=== PATIENT | female | born 1950 | race Caucasian/White ===

== ENCOUNTER 2018-08-13 20:53 | Inpatient (IN) | payer MEDICARE, OTHER ==
[2018-08-13] MEDS ORDERED: HYDROmorphone 1 MG/ML Syringe IVPUSH ONE ×2 (21:28→22:23)
--- NOTE | 2018-08-13 22:22 | CRLCR ---
INDICATION: Trauma. Patient fall now with right hip pain TECHNIQUE: Pelvis radiograph, Hip radiograph 2 views right COMPARISON: None FINDINGS: Bone: There is a comminuted, impacted fracture of the right femoral neck with varus angulation. Joint: The hip joint is unremarkable. The visualized sacroiliac joints are unremarkable in appearance. The pubic symphysis is normal in appearance. Soft tissue: Unremarkable. The visualized bowel gas pattern of the pelvis is unremarkable in appearance. No radiopaque foreign bodies are seen. IMPRESSION: 1. There is a comminuted, impacted fracture of the right femoral neck with varus angulation. Dictated by Edis Donahue MD @ 08/13/2018 10:20:17 PM Dictated by: Edis Donahue MD @ 08/13/2018 22:20:19 (Electronically Signed)
--- NOTE | 2018-08-13 23:11 | EDM.PDOC ---
ED HPI GENERAL MEDICAL PROBLEM - General Chief Complaint: Lower Extremity Injury/Pain Stated Complaint: FALL, VIA AMBULANCE Time Seen by Provider: 08/13/18 21:23 Source of Information: Reports: Patient History Limitations: Reports: No Limitations - History of Present Illness INITIAL COMMENTS - FREE TEXT/NARRATIVE: This lady arrived by EMS after she suffered a right hip injury when she fell off a stool. This happened just prior to arrival. She denies taking any type of anticoagulation and does not take aspirin. 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 right foot fracture Psychiatric History: Reports: Anxiety, Depression - Infectious Disease History Infectious Disease History: Reports: Chicken Pox, Measles, Mumps, Shingles - Past Surgical History HEENT Surgical History: Reports: Oral Surgery Female Surgical History: Reports: Section Musculoskeletal Surgical History: Reports: Other (See Below) Other Musculoskeletal Surgeries/Procedures:: right wrist repair Social & Family History - Tobacco Use Smoking Status *Q: Never Smoker - Caffeine Use Caffeine Use: Reports: Coffee - Recreational Drug Use Recreational Drug Use: No Review of Systems - Review of Systems Review Of Systems: ROS reveals no pertinent complaints other than HPI. ED EXAM, GENERAL - Physical Exam Exam: See Below Exam Limited By: No Limitations General Appearance: Alert, WD/WN, Moderate Distress Eye Exam: Bilateral Eye: Normal Inspection Throat/Mouth: Normal Inspection Respiratory/Chest: Lungs Clear Cardiovascular: Regular Rate, Rhythm GI/Abdominal: Non-Tender Extremities: Other (Tenderness to the right hip with limited range of motion of the right leg) Neurological: Alert, Oriented, No Motor/Sensory Deficits Psychiatric: Normal Affect Skin Exam: Warm, Dry Course - Vital Signs Last Recorded V/S: Last Vital Signs Temp 36.2 C 08/13/18 21:09 Pulse 63 08/13/18 21:09 Resp 16 08/13/18 21:09 BP 142/60 H 08/13/18 21:09 Pulse Ox 94 L 08/13/18 21:09 - Orders/Labs/Meds Meds: Medications Discontinued Medications Generic Name Dose Route Start Last Admin Trade Name Cherise PRN Reason Stop Dose Admin Hydromorphone HCl 1 mg 08/13/18 21:28 08/13/18 21:38 Dilaudid IVPUSH 08/13/18 21:29 1 mg ONETIME ONE Administration Hydromorphone HCl 1 mg 08/13/18 22:23 08/13/18 22:38 Dilaudid IVPUSH 08/13/18 22:24 1 mg ONETIME ONE Administration - Radiology Interpretation Free Text/Narrative:: X-ray shows a comminuted impacted fracture of the right femoral neck with varus angulation - Re-Assessments/Exams Free Text/Narrative Re-Assessment/Exam: 08/13/18 23:10 I spoke with Deepak Randolph at [facility] and he accepted the patient. The patient was managed in our ER with 2 doses of Dilaudid 1 mg IV which gave fairly good pain control. She also received 4 mg Zofran IV Departure - Departure Time of Disposition: 23:10 Disposition: DC/Tfer to Acute Hospital 02 Condition: Fair Clinical Impression: Fracture of neck of femur, hip - Discharge Information Referrals: PCP,None [Primary Care Provider] -
[2018-08-14] MEDS ORDERED: HYDROmorphone 1 MG/ML Syringe IVPUSH ONE (01:02)
--- NOTE | 2018-08-14 01:21 | PCM.HP ---
H&P History of Present Illness - General Date of Service: 08/14/18 Admit Problem/Dx: Admission Diagnosis/Problem Admission Diagnosis/Problem Hip fracture requiring operative repair Source of Information: Patient, Family, Provider, RN Notes Reviewed History Limitations: Reports: No Limitations - History of Present Illness Initial Comments - Free Text/Narative: Ms. Wilson is a 67-year-old woman who was admitted through the emergency department with right hip pain, secondary to a right hip fracture. Last night she was standing on a step stool and in the process of getting down and fell. She immediately noted pain in her right hip. She was brought into the emergency department and x-ray shows evidence of a right femoral neck fracture. Has had a previous fracture of her wrist several years ago. She is otherwise in very good health, other than depression which is well managed. She denies any history of significant cardiac or pulmonary disease. She is had previous surgery with general anesthetic and denies any adverse reaction. There is no family history of adverse reaction to general anesthetic. She denies any history of deep vein thrombosis, pulmonary embolism, or bleeding abnormalities. 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 right foot fracture Psychiatric History: Reports: Anxiety, Depression - Infectious Disease History Infectious Disease History: Reports: Chicken Pox, Measles, Mumps, Shingles - Past Surgical History HEENT Surgical History: Reports: Oral Surgery Female Surgical History: Reports: Section Musculoskeletal Surgical History: Reports: Other (See Below) Other Musculoskeletal Surgeries/Procedures:: right wrist repair Social & Family History - Tobacco Use Smoking Status *Q: Never Smoker - Caffeine Use Caffeine Use: Reports: Coffee - Recreational Drug Use Recreational Drug Use: No H&P Review of Systems - Review of Systems: Review Of Systems: See Below General: Denies: Fever, Chills, Weakness HEENT: Reports: No Symptoms Pulmonary: Reports: No Symptoms Cardiovascular: Reports: No Symptoms Gastrointestinal: Reports: No Symptoms Genitourinary: Reports: No Symptoms Musculoskeletal: Reports: Joint Pain (Severe right hip pain) Skin: Reports: No Symptoms Psychiatric: Reports: No Symptoms Neurological: Reports: No Symptoms Hematologic/Lymphatic: Reports: No Symptoms Immunologic: Reports: No Symptoms Exam - Exam Exam: See Below - Vital Signs Vital Signs: Last Vital Signs Temp 97.8 F 08/13/18 23:48 Pulse 67 08/13/18 23:48 Resp 16 08/13/18 23:48 BP 130/62 08/13/18 23:48 Pulse Ox 95 08/13/18 23:48 Weight: 170 lb - Exam Quality Assessment: DVT Prophylaxis General: Alert, Oriented, Cooperative, Moderate Distress HEENT: Conjunctiva Clear, Hearing Intact, Mucosa Moist & [place], Normal Nasal Septum, Posterior Pharynx Clear, Pupils Equal Neck: Supple, Trachea Midline Lungs: Clear to Auscultation, Normal Respiratory Effort Cardiovascular: Regular Rate, Regular Rhythm, Normal S1, Normal S2. No: Systolic Murmur, Diastolic Murmur GI/Abdominal Exam: Soft, Non-Tender, No Organomegaly, No Distention Extremities: No Pedal Edema, Leg Pain (Right hip pain) Skin: Warm, Dry, Intact Neurological: Cranial Nerves Intact, Strength Equal Bilateral, Normal Speech, Normal Tone, Sensation Intact. No: Focal Deficit Neuro Extensive - Mental Status: Alert, Oriented x3, Normal Mood/Affect, Normal Cognition, Memory Intact *Q Meaningful Use (ADM) - VTE Risk Assess *Q Each Risk Factor Represents 1 Point: None Total Score 1 Point Risk Factors: 0 Each Risk Factor Represents 2 Points: Age 60 - 74 Years Total Score 2 Point Risk Factors: 2 Each Risk Factor Represents 3 Points: None Total Score 3 Point Risk Factors: 0 Each Risk Factor Represents 5 Points: Hip, Pelvis or Leg Fracture, Less than 1 month Total Score 5 Point Risk Factors: 5 Venous Thromboembolism Risk Factor Score *Q: 7 Problem List Initiated/Reviewed/Updated: Yes Orders Last 24hrs: Active Orders 24 hr Category Date Time Status Patient Status Manage Transfer [TRANSFER] Routine ADT 08/14/18 01:02 Ordered Resuscitation Status Routine Resus Stat 08/14/18 01:04 Ordered Assessment/Plan Comment:: ASSESSMENT AND PLAN RIGHT FEMORAL NECK FRACTURE-secondary to a fall earlier last night. She is of good health and is low risk for anesthesia. -Consult Dr. Proctor Wednesday morning -Nothing by mouth after midnight Wednesday night -IV fluids for hydration -IV Dilaudid for pain as needed [id number] on current therapy -Continue Effexor during hospitalization MAINTENANCE ISSUES -DVT prophylaxis; heparin 5000 units subcutaneous every 8 hours until tomorrow night, then discontinue ending surgery -GI prophylaxis; not indicated -Saavedra catheter; not indicated -Nutrition; regular diet, nothing by mouth after midnight Wednesday -Nicotine dependence; not required CODE STATUS-FULL CODE ADMISSION STATUS-patient will be admitted to inpatient status, expect at least a 2 night hospital stay for evaluation and management of problems as outlined above. At the time of this admission I do not reasonably expected evaluation and management of this problem will require more than a 96 hour hospital stay. DISPOSITION-anticipate discharge to home after the hospital stay. PRIMARY CARE PROVIDER-she is from [facility] and receives her primary care there.
[2018-08-14] MEDS ORDERED: Albuterol 0.083% 2.5 MG/3 ML Neb Soln NEB PRN (01:28)
[2018-08-14] MEDS ORDERED: Acetaminophen 325 MG Tab PO PRN (01:28)
[2018-08-14] MEDS ORDERED: Lactated Ringers 1,000 ML IV SCH (01:28)
[2018-08-14] MEDS ORDERED: Melatonin 3 MG Tab PO PRN (01:28)
[2018-08-14] MEDS ORDERED: Ondansetron 4 MG/2 ML SDV IV PRN (01:28)
[2018-08-14] MEDS ORDERED: Sodium Chloride 0.9% 10 ML Syringe FLUSH PRN (01:28)
[2018-08-14] MEDS: Heparin Sodium 5,000 Units/ML Vial SUBCUT SCH ×3 (02:10→18:20)
[2018-08-14] MEDS: HYDROmorphone 1 MG/ML Syringe IVPUSH PRN ×4 (07:17→21:46)
[2018-08-14] MEDS: Venlafaxine 75 MG Cap.ER PO SCH (10:06)
--- NOTE | 2018-08-14 12:25 | PCM.CONS ---
H&P History of Present Illness - General Date of Service: 08/14/18 Admit Problem/Dx: Admission Diagnosis/Problem Admission Diagnosis/Problem Hip fracture requiring operative repair Source of Information: Patient History Limitations: Reports: No Limitations - History of Present Illness Initial Comments - Free Text/Narative: 67 year old white female with history of a fall from a step stool yesterday resulting in a displaced right femoral neck fracture. Admitted thru the ED. No other injuries. Otherwise healthy and active. No blood thinners or other contra-indications to surgery. Onset of Symptoms: Reports: Sudden Duration of Symptoms: Reports: Constant Location: Reports: Lower Extremity, Right Quality: Reports: Sharp, Stabbing Severity: Severe Improves with: Reports: Immobilization Worsens with: Reports: Movement Associated Symptoms: Reports: No Other Symptoms right upper leg/groin Pain Score (Numeric/FACES): 4 - Related Data Allergies/Adverse Reactions: Allergies Allergy/AdvReac Type Severity Reaction Status Date / Time No Known Allergies Allergy Verified 08/14/18 02:15 Home Medications: Home Meds Calcium Carbonate [Calcium] 600 mg PO DAILY 09/02/15 [History] Multivitamin [Multivitamins] 1 tab PO DAILY 09/02/15 [History] Venlafaxine [Effexor XR] 300 mg PO DAILY 09/02/15 [History] Cholecalciferol (Vitamin D3) [Vitamin D] 5,000 unit PO DAILY 08/14/18 [History] Past Medical History HEENT History: Reports: None Genitourinary History: Reports: 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 right foot fracture. right hip fracture Psychiatric History: Reports: Anxiety, Depression - Infectious Disease History Infectious Disease History: Reports: Chicken Pox, Measles, Mumps, Shingles - Past Surgical History HEENT Surgical History: Reports: Oral Surgery Female Surgical History: Reports: Section Musculoskeletal Surgical History: Reports: Other (See Below) Other Musculoskeletal Surgeries/Procedures:: right wrist repair Social & Family History - Tobacco Use Smoking Status *Q: Former Smoker Used Tobacco, but Quit: Yes Month/Year Tobacco Last Used: 03/1970 - Caffeine Use Caffeine Use: Reports: Coffee Caffeine Use Comment: 1-2 cups/daily - Alcohol Use Days Per Week of Alcohol Use: 7 Number of Drinks Per Day: 1 Total Drinks Per Week: 7 - Recreational Drug Use Recreational Drug Use: No H&P Review of Systems - Review of Systems: Review Of Systems: ROS reveals no pertinent complaints other than HPI. Exam - Exam Exam: See Below - Vital Signs Vital Signs: Last Vital Signs Temp 36.6 C 08/14/18 11:00 Pulse 71 08/14/18 11:00 Resp 18 08/14/18 11:00 BP 142/73 H 08/14/18 11:00 Pulse Ox 94 L 08/14/18 11:00 Weight: 85.774 kg - Exam General: Alert, Oriented, 4 HEENT: PERRLA, Hearing Intact, Mucosa Moist & [place], Nares Patent, Normal Nasal Septum, Posterior Pharynx Clear, Conjunctiva Clear, EOMI, EACs Clear, TMs Clear Neck: Supple, Trachea Midline, 2 Lungs: Clear to Auscultation, Normal Respiratory Effort Cardiovascular: Regular Rate, Regular Rhythm GI/Abdominal Exam: Normal Bowel Sounds, Soft, Non-Tender, No Organomegaly, No Distention, No Abnormal Bruit, No Mass, Pelvis Stable (Female) Exam: Deferred Rectal (Female) Exam: Deferred Extremities: Other (Right hip pain with log roll, sensation and circulation intact.) Skin: Warm, Dry, Intact Neurological: Cranial Nerves Intact, Reflexes Equal Bilateral Neuro Extensive - Mental Status: Alert, Oriented x3, Normal Mood/Affect, Normal Cognition Neuro Extensive - Motor, Sensory, Reflexes: CN II-XII Intact, Normal Gait, Normal Reflexes Psychiatric: Alert, Normal Affect, Normal Mood - Patient Data Lab Results Last 24 hrs: Laboratory Results - last 24 hr 08/14/18 08/14/18 Range/Units 05:11 05:57 WBC 8.2 (4.5-11.0) K/uL RBC 3.77 (3.30-5.50) M/uL Hgb 12.0 (12.0-15.0) g/dL Hct 37.1 (36.0-48.0) % MCV 98 (80-98) fL MCH 32 H (27-31) pg MCHC 32 (32-36) % Plt Count 190 (150-400) K/uL Neut % (Auto) 84 H (36-66) % Lymph % (Auto) 9 L (24-44) % Martin % (Auto) 7 H (2-6) % Eos % (Auto) 0 L (2-4) % Baso % (Auto) 0 (0-1) % Sodium 137 L (140-148) mmol/L Potassium 4.8 (3.6-5.2) mmol/L Chloride 100 (100-108) mmol/L Carbon Dioxide 30 (21-32) mmol/L Anion Gap 11.8 (5.0-14.0) mmol/L BUN 15 (7-18) mg/dL Creatinine 0.8 (0.6-1.0) mg/dL Est Cr Clr Drug Dosing 74.80 mL/min Estimated GFR (MDRD) > 60 (>60) Glucose 120 H (74-106) mg/dL Calcium 8.8 (8.5-10.1) mg/dL Total Bilirubin 0.4 (0.2-1.0) mg/dL AST 19 (15-37) U/L ALT 29 (12-78) U/L Alkaline Phosphatase 110 (46-116) U/L Total Protein 6.8 (6.4-8.2) g/dL Albumin 3.2 L (3.4-5.0) g/dL Globulin 3.6 H (2.3-3.5) g/dL Albumin/Globulin Ratio 0.9 L (1.2-2.2) Result Diagrams: 08/14/18 05:11 08/14/18 05:57 Consult PN Assessment/Plan Procedures: Procedures EMERGENCY DEPT VISIT (09/02/15) (1) Fracture of neck of femur, hip SNOMED Code(s): 1358971 Code(s): S72.009A - FRACTURE OF UNSP PART OF NECK OF UNSP FEMUR, INIT Current Visit: Yes Assessment:: Right hip Problem List Initiated/Reviewed/Updated: Yes My Orders Last 24 Hours: My Active Orders 08/14/18 12:15 Verify Patient Consent Obtain [RC] ASDIRECTED 08/14/18 12:19 Dietary Supplements [RC] BIDMEALS 08/15/18 09:00 Nozin [ Nasal Wallpaper Cleaner] 1 applic NASBOTH BID 08/15/18 12:15 ceFAZolin [Ancef] 2 gm Premix Bag 1 bag IV ONETIME Plan: Discussed the fracture and optimal treatment. Recommend hemiarthroplasty right hip. Risks, benefits and potential complications were discussed.
--- NOTE | 2018-08-14 12:48 | PCM.PN ---
- General Info Date of Service: 08/14/18 Subjective Update: Ms. Wilson has been stable since admission earlier this morning, reports current pain control is adequate, she is had no nausea or vomiting. She has been evaluated by Dr. Proctor, current plan is for surgical repair of the hip tomorrow morning. Functional Status: Reports: Tolerating Diet, Urinating - Review of Systems General: Denies: Fever, Weakness, Chills Pulmonary: Reports: No Symptoms Cardiovascular: Reports: No Symptoms Gastrointestinal: Reports: No Symptoms Musculoskeletal: Reports: Joint Pain (Right hip pain) - Patient Data Vitals - Most Recent: Last Vital Signs Temp 97.8 F 08/14/18 11:00 Pulse 71 08/14/18 11:00 Resp 18 08/14/18 11:00 BP 142/73 H 08/14/18 11:00 Pulse Ox 94 L 08/14/18 11:00 Weight - Most Recent: 189 lb 1.6 oz I&O - Last 24 Hours: Intake & Output 08/13/18 08/14/18 08/14/18 22:59 06:59 14:59 Intake Total 1060 240 Balance 1060 240 Lab Results Last 24 Hours: Laboratory Results - last 24 hr 08/14/18 08/14/18 Range/Units 05:11 05:57 WBC 8.2 (4.5-11.0) K/uL RBC 3.77 (3.30-5.50) M/uL Hgb 12.0 (12.0-15.0) g/dL Hct 37.1 (36.0-48.0) % MCV 98 (80-98) fL MCH 32 H (27-31) pg MCHC 32 (32-36) % Plt Count 190 (150-400) K/uL Neut % (Auto) 84 H (36-66) % Lymph % (Auto) 9 L (24-44) % [place] % (Auto) 7 H (2-6) % Eos % (Auto) 0 L (2-4) % Baso % (Auto) 0 (0-1) % Sodium 137 L (140-148) mmol/L Potassium 4.8 (3.6-5.2) mmol/L Chloride 100 (100-108) mmol/L Carbon Dioxide 30 (21-32) mmol/L Anion Gap 11.8 (5.0-14.0) mmol/L BUN 15 (7-18) mg/dL Creatinine 0.8 (0.6-1.0) mg/dL Est Cr Clr Drug Dosing 74.80 mL/min Estimated GFR (MDRD) > 60 (>60) Glucose 120 H (74-106) mg/dL Calcium 8.8 (8.5-10.1) mg/dL Total Bilirubin 0.4 (0.2-1.0) mg/dL AST 19 (15-37) U/L ALT 29 (12-78) U/L Alkaline Phosphatase 110 (46-116) U/L Total Protein 6.8 (6.4-8.2) g/dL Albumin 3.2 L (3.4-5.0) g/dL Globulin 3.6 H (2.3-3.5) g/dL Albumin/Globulin Ratio 0.9 L (1.2-2.2) Med Orders - Current: Current Medications Acetaminophen (Tylenol) 650 mg PO Q4H PRN PRN Reason: Pain (Mild 1-3)/fever Albuterol (Proventil Neb Soln) 2.5 mg NEB Q4H PRN PRN Reason: Shortness Of Breath/wheezing Bandage/Support Products ( Nasal Crop Puller) 1 applic NASBOTH BID [facility] Stop: 08/21/18 21:01 Heparin Sodium (Porcine) (Heparin Sodium) 5,000 units SUBCUT Q8H [facility] Stop: 08/14/18 17:29 Last Admin: 08/14/18 10:07 Dose: 5,000 units Hydromorphone HCl (Dilaudid) 1 mg IVPUSH Q2H PRN PRN Reason: Pain Last Admin: 08/14/18 12:31 Dose: 1 mg Cefazolin Sodium/Dextrose 2 gm (/ Premix) 50 mls @ 100 mls/hr IV ONETIME ONE Stop: 08/15/18 12:44 Lactated Ringer's (Ringers, Lactated) 1,000 mls @ 125 mls/hr IV ASDIRECTED [facility] Melatonin (Melatonin) 6 mg PO BEDTIME PRN PRN Reason: Insomnia Ondansetron HCl (Zofran) 4 mg IV Q4H PRN PRN Reason: Nausea/Vomiting Polyethylene Glycol (Miralax) 17 gm PO DAILY PRN PRN Reason: Constipation Senna/Docusate Sodium (Senna Plus) 1 tab PO BID [facility] Last Admin: 08/14/18 10:07 Dose: 1 tab Sodium Chloride (Saline Flush) 10 ml FLUSH ASDIRECTED PRN PRN Reason: Keep Vein Open Venlafaxine HCl (Effexor Xr) 300 mg PO DAILY [facility] Last Admin: 08/14/18 10:06 Dose: 300 mg Discontinued Medications Hydromorphone HCl (Dilaudid) 1 mg IVPUSH ONETIME ONE Stop: 08/13/18 21:29 Last Admin: 08/13/18 21:38 Dose: 1 mg Hydromorphone HCl (Dilaudid) 1 mg IVPUSH ONETIME ONE Stop: 08/13/18 22:24 Last Admin: 08/13/18 22:38 Dose: 1 mg Hydromorphone HCl (Dilaudid) 1 mg IVPUSH ONETIME ONE Stop: 08/14/18 01:03 Last Admin: 08/14/18 01:44 Dose: 1 mg Lactated Ringer's (Ringers, Lactated) 1,000 mls @ 125 mls/hr IV ASDIRECTED [facility] Last Admin: 08/14/18 02:10 Dose: 125 mls/hr - Exam Quality Assessment: DVT Prophylaxis General: Alert, Oriented, Cooperative, Moderate Distress Lungs: Clear to Auscultation, Normal Respiratory Effort Cardiovascular: Regular Rate, Regular Rhythm, No Murmurs GI/Abdominal Exam: Soft, Non-Tender, No Organomegaly, No Distention Extremities: No Pedal Edema, Other (Right hip pain) - Problem List Review Problem List Initiated/Reviewed/Updated: Yes - My Orders Last 24 Hours: My Active Orders 08/14/18 01:04 Resuscitation Status Routine 08/14/18 01:28 Patient Status [ADT] Routine Ambulate [RC] QID Height and Weight [RC] DAILY Incentive Spirometry [RT Incentive Spirometry] [RC] ASDIRECTED Intake and Output [RC] QSHIFT Notify Provider Consults [RC] ASDIRECTED Notify Provider Vital Signs [RC] ASDIRECTED Oxygen Therapy [RC] .PRN Peripheral IV Care [RC] . DIRECTED Pulse Oximetry [RC] CONTINUOUS RT Aerosol Therapy [RC] ASDIRECTED Up With Assistance [RC] ASDIRECTED Up to Chair [RC] QID VTE/DVT Education [RC] Per Unit Routine Vital Signs [RC] Q4H Consult to Physician [CONS] Routine Acetaminophen [Tylenol] 650 mg PO Q4H PRN Albuterol [Proventil Neb Soln] 2.5 mg NEB Q4H PRN HYDROmorphone [Dilaudid] 1 mg IVPUSH Q2H PRN Heparin Sodium 5,000 units SUBCUT Q8H Melatonin 6 mg PO BEDTIME PRN Ondansetron [Zofran] 4 mg IV Q4H PRN Polyethylene Glycol 3350 [MiraLAX] 17 gm PO DAILY PRN Sodium Chloride 0.9% [Saline Flush] 10 ml FLUSH ASDIRECTED PRN Peripheral IV Insertion Adult [OM.PC] Routine 08/14/18 09:00 Docusate Sodium/Sennosides [Senna Plus] 1 tab PO BID Venlafaxine [Effexor XR] 300 mg PO DAILY 08/14/18 12:38 Convert IV to Saline Lock [OM.PC] Routine 08/14/18 Breakfast Regular Diet [DIET] 08/15/18 00:01 Lactated Ringers [Ringers, Lactated] 1,000 ml IV ASDIRECTED 08/15/18 Breakfast Nothing per Oral After Midnight Diet [DIET] - Plan Plan:: ASSESSMENT AND PLAN RIGHT FEMORAL NECK FRACTURE-secondary to a fall earlier last night. She is of good health and is low risk for anesthesia. -Ongoing management per Dr. Proctor -Nothing by mouth after midnight Wednesday night -Saline lock IV now, resume IV fluids at midnight -IV Dilaudid for pain as needed [id number]-loip-guowlsk on current therapy -Continue Effexor during hospitalization MAINTENANCE ISSUES -DVT prophylaxis; heparin 5000 units subcutaneous every 8 hours until tomorrow night, then discontinue pending surgery -GI prophylaxis; not indicated -Saavedra catheter; not indicated -Nutrition; regular diet, nothing by mouth after midnight Wednesday -Nicotine dependence; not required CODE STATUS-FULL CODE ADMISSION STATUS-patient will be admitted to inpatient status, expect at least a 2 night hospital stay for evaluation and management of problems as outlined above. At the time of this admission I do not reasonably expected evaluation and management of this problem will require more than a 96 hour hospital stay. DISPOSITION-anticipate discharge to home after the hospital stay. PRIMARY CARE PROVIDER-she is from [facility] and receives her primary care there.
[2018-08-15] MEDS: HYDROmorphone 1 MG/ML Syringe IVPUSH PRN ×4 (03:32→22:29)
[2018-08-15] MEDS ORDERED: Propofol 200 MG/20 ML SDV ONE ×2 (07:59→12:30)
[2018-08-15] MEDS ORDERED: Midazolam 1 MG/ML 2 ML SDV ONE (07:59)
[2018-08-15] MEDS ORDERED: fentaNYL 100 MCG/2 ML SDV ONE (07:59)
[2018-08-15] MEDS: Venlafaxine 75 MG Cap.ER PO SCH (08:39)
[2018-08-15] MEDS ORDERED: Povidone-Iodine 10% Soln 118.25 ML Bottle ONE (10:17)
[2018-08-15] MEDS: Lactated Ringers 1,000 ML IV SCH ×2 (10:28→22:32)
[2018-08-15] MEDS: Nozin Nasal Sanitizer NASBOTH SCH ×3 (11:30→21:15)
[2018-08-15] MEDS: ceFAZolin 2 GM in Premix Bag 1 BAG IV ONE ×2 (11:35→13:47)
[2018-08-15] MEDS ORDERED: Acetaminophen/HYDROcodone 325-5 MG Tab PO PRN (13:24)
--- NOTE | 2018-08-15 13:51 | CR ---
PELVIS AP Clinical History: Postop right hemiarthroplasty Findings: Patient is status post a right hip hemiarthroplasty. Components appear well seated. Impression: Status post reduction right hip fracture with a right hip hemiarthroplasty
[2018-08-15] MEDS: Acetaminophen/oxyCODONE 325-5 MG Tab PO PRN ×2 (16:19→21:14)
[2018-08-15] MEDS: ceFAZolin 1 GM in Premix Bag 1 BAG IV SCH (17:21)
[2018-08-15] MEDS ORDERED: Nozin Nasal Sanitizer NASBOTH SCH (21:00)
[2018-08-16] MEDS: Acetaminophen/oxyCODONE 325-5 MG Tab PO PRN ×4 (01:11→18:37)
[2018-08-16] MEDS: ceFAZolin 1 GM in Premix Bag 1 BAG IV SCH ×2 (01:24→09:48)
[2018-08-16] MEDS: Lactated Ringers 1,000 ML IV SCH ×2 (05:52→14:10)
[2018-08-16] MEDS: Enoxaparin 30 MG/0.3 ML Syringe SUBCUT SCH (08:41)
[2018-08-16] MEDS: Nozin Nasal Sanitizer NASBOTH SCH ×2 (08:42→20:00)
[2018-08-16] MEDS: Venlafaxine 75 MG Cap.ER PO SCH (08:42)
[2018-08-16] MEDS: HYDROmorphone 1 MG/ML Syringe IVPUSH PRN (08:51)
--- NOTE | 2018-08-16 12:04 | OR ---
DATE OF PROCEDURE: 08/15/2018 PREOPERATIVE DIAGNOSIS: Displaced right femoral neck fracture. POSTOPERATIVE DIAGNOSIS: Displaced right femoral neck fracture. PROCEDURE: Hemiarthroplasty, right hip, using Frida ML taper stem size 10 with extended offset, 50 mm outer diameter shell, and +3.5 mm femoral head. ANESTHESIA: Spinal with sedation. INDICATIONS: Mrs. Wilson is a 67-year-old female who sustained an injury to her right hip when she fell from a step-stool this weekend. She was admitted and underwent preoperative evaluation. She is now taken to the operating room for hemiarthroplasty for a displaced femoral neck fracture. Hemiarthroplasty versus total hip arthroplasty options were discussed. Risks, benefits, and potential complications were discussed. DESCRIPTION OF PROCEDURE: After adequate anesthesia was obtained, the patient was placed in the lateral decubitus position and secured with the hip positioner. The right hip and leg were prepped and draped in a sterile fashion. Incision was made over the greater trochanter and carried down through the subcutaneous tissues. Hemostasis was obtained with electrocautery. IT band was split in line with its fibers and the Charnley retractor was placed. Moderate irregular bursa was present, and this was excised. The leg was internally rotated. The short external rotators were taken off the greater trochanter with electrocautery. Capsule was then entered and hemarthrosis was present. Capsule was split in a T-fashion, and the fracture was presented into the wound. Retractor was placed under the femoral neck and an oscillating saw was then used to recut the femoral neck. Fracture fragments were removed. The femoral head was then removed and measured. The acetabulum was trialed to a 50-mm cup with good fit. Attention was then returned to the femur. A box osteotome was used to remove the lateral femoral neck cortex. Hand awl was placed down the canal. A lateralizing reamer was then used. The canal was then sequentially broached to a size 10 stem. A size 10 extended- offset stem was then tapped into position. Trial reductions were then made with a +3.5 neck length showing good stability, and this appeared to recreate the normal limb length. Trial was removed. The hip was irrigated. The final bipolar cup was then tapped onto the stem and reduced once again. This again was taken through range of motion and found to be very stable in flexion, adduction, and internal rotation. The capsule was then closed with #1 Tycron. Short external rotators were reattached to the greater trochanter with #1 Tycron. IT band was then closed in a running fashion with #1 Tycron. Skin was closed with 2-0 Vicryl and a running 3-0 Monocryl. Steri-Strips were applied. Sterile dressing was then placed. The patient tolerated the procedure well. There were no complications. She was taken from the operating room in a stable condition. Lukas Proctor MD /[id number] MTDD
[2018-08-16] MEDS: Polyethylene Glycol 3350 Powder 17 GM Packet PO PRN (21:00)
[2018-08-17] MEDS: Acetaminophen/oxyCODONE 325-5 MG Tab PO PRN ×5 (03:30→20:56)
[2018-08-17] MEDS: Polyethylene Glycol 3350 Powder 17 GM Packet PO PRN (07:49)
[2018-08-17] MEDS: Nozin Nasal Sanitizer NASBOTH SCH ×2 (08:04→20:53)
[2018-08-17] MEDS: Venlafaxine 75 MG Cap.ER PO SCH (08:07)
[2018-08-17] MEDS: Enoxaparin 30 MG/0.3 ML Syringe SUBCUT SCH (08:07)
[2018-08-18] MEDS: Acetaminophen/oxyCODONE 325-5 MG Tab PO PRN ×3 (02:55→11:20)
[2018-08-18 07:15] VITALS: BP 117/55
--- NOTE | 2018-08-18 08:57 | PCM.SURGPN ---
- General Info Date of Service: 08/18/18 Functional Status: Reports: Pain Controlled - Review of Systems General: Reports: No Symptoms HEENT: Reports: No Symptoms Pulmonary: Reports: No Symptoms Cardiovascular: Reports: No Symptoms Gastrointestinal: Reports: No Symptoms Genitourinary: Reports: No Symptoms Neurological: Reports: No Symptoms Psychiatric: Reports: No Symptoms - Patient Data Vitals - Most Recent: Last Vital Signs Temp 36.7 C 08/18/18 07:14 Pulse 74 08/18/18 07:14 Resp 18 08/18/18 07:14 BP 117/55 L 08/18/18 07:14 Pulse Ox 100 08/18/18 07:14 Weight - Most Recent: 85.774 kg I&O - Last 24 Hours: Intake & Output 08/17/18 08/18/18 08/18/18 22:59 06:59 14:59 Intake Total 1000 460 Output Total 900 500 Balance 100 -40 Med Orders - Current: Current Medications Acetaminophen (Tylenol) 650 mg PO Q4H PRN PRN Reason: Pain (Mild 1-3)/fever Hydrocodone Bitart/Acetaminophen ([place] 325-5 Mg) 1 tab PO Q3H PRN PRN Reason: Pain (mild 1-3) Last Admin: 08/15/18 14:58 Dose: 1 tab Albuterol (Proventil Neb Soln) 2.5 mg NEB Q4H PRN PRN Reason: Shortness Of Breath/wheezing Bandage/Support Products ( Nasal [employer]) 1 applic NASBOTH BID [facility] Stop: 08/21/18 21:01 Last Admin: 08/17/18 20:53 Dose: 1 applic Enoxaparin Sodium (Lovenox) 30 mg SUBCUT DAILY [facility] Last Admin: 08/17/18 08:07 Dose: 30 mg Hydromorphone HCl (Dilaudid) 1 mg IVPUSH Q2H PRN PRN Reason: Pain Last Admin: 08/16/18 08:51 Dose: 1 mg Melatonin (Melatonin) 6 mg PO BEDTIME PRN PRN Reason: Insomnia Ondansetron HCl (Zofran) 4 mg IV Q4H PRN PRN Reason: Nausea/Vomiting Oxycodone/Acetaminophen (Percocet 325-5 Mg) 1 - 2 tab PO Q4H PRN PRN Reason: Pain Last Admin: 08/18/18 07:09 Dose: 2 tab Polyethylene Glycol (Miralax) 17 gm PO DAILY PRN PRN Reason: Constipation Last Admin: 08/17/18 07:49 Dose: 17 gm Senna/Docusate Sodium (Senna Plus) 1 tab PO BID [facility] Last Admin: 08/17/18 20:56 Dose: 1 tab Sodium Chloride (Saline Flush) 10 ml FLUSH ASDIRECTED PRN PRN Reason: Keep Vein Open Venlafaxine HCl (Effexor Xr) 300 mg PO DAILY [facility] Last Admin: 08/17/18 08:07 Dose: 300 mg Discontinued Medications Fentanyl (Sublimaze) Confirm Administered Dose 100 mcg .ROUTE .STK-MED ONE Stop: 08/15/18 08:00 Heparin Sodium (Porcine) (Heparin Sodium) 5,000 units SUBCUT Q8H [facility] Stop: 08/14/18 17:29 Last Admin: 08/14/18 18:20 Dose: 5,000 units Hydromorphone HCl (Dilaudid) 1 mg IVPUSH ONETIME ONE Stop: 08/13/18 21:29 Last Admin: 08/13/18 21:38 Dose: 1 mg Hydromorphone HCl (Dilaudid) 1 mg IVPUSH ONETIME ONE Stop: 08/13/18 22:24 Last Admin: 08/13/18 22:38 Dose: 1 mg Hydromorphone HCl (Dilaudid) 1 mg IVPUSH ONETIME ONE Stop: 08/14/18 01:03 Last Admin: 08/14/18 01:44 Dose: 1 mg Lactated Ringer's (Ringers, Lactated) 1,000 mls @ 125 mls/hr IV ASDIRECTED [facility] Last Admin: 08/14/18 02:10 Dose: 125 mls/hr Cefazolin Sodium/Dextrose 2 gm (/ Premix) 50 mls @ 100 mls/hr IV ONETIME ONE Stop: 08/15/18 12:44 Last Admin: 08/15/18 13:47 Dose: Not Given Lactated Ringer's (Ringers, Lactated) 1,000 mls @ 125 mls/hr IV ASDIRECTED [facility] Last Admin: 08/16/18 14:10 Dose: 125 mls/hr Cefazolin Sodium/Dextrose 1 gm (/ Premix) 50 mls @ 100 mls/hr IV Q8H [facility] Stop: 08/16/18 10:29 Last Admin: 08/16/18 09:48 Dose: 100 mls/hr Midazolam HCl (Versed 1 Mg/Ml) Confirm Administered Dose 2 mg .ROUTE .STK-MED ONE Stop: 08/15/18 08:00 Povidone Iodine (Betadine 10% Soln) Confirm Administered Dose 1 ml .ROUTE .STK- MED ONE Stop: 08/15/18 10:18 Last Admin: 08/15/18 12:35 Dose: 30 ml Propofol (Diprivan 20 Ml) Confirm Administered Dose 200 mg .ROUTE .STK-MED ONE Stop: 08/15/18 08:00 Propofol (Diprivan 20 Ml) Confirm Administered Dose 200 mg .ROUTE .STK-MED ONE Stop: 08/15/18 12:31 - Exam Wound/Incisions: Dressing Dry and Intact, No Drainage, Other (mild inflammation/ redness right hip, no drainage ) - Problem List & Annotations (1) Fracture of neck of femur, hip SNOMED Code(s): 9806559 Code(s): S72.009A - FRACTURE OF UNSP PART OF NECK OF UNSP FEMUR, INIT Status: Acute Current Visit: Yes (2) History of hemiarthroplasty of hip SNOMED Code(s): 109397347 Code(s): Z96.649 - PRESENCE OF UNSPECIFIED ARTIFICIAL HIP JOINT Status: Acute Current Visit: Yes Annotation/Comment:: right hip - Problem List Review Problem List Initiated/Reviewed/Updated: Yes - My Orders Last 24 Hours: Active Orders 24 hr Category Date Time Status May Shower [RC] ASDIRECTED Care 08/17/18 12:04 Active Medication Orders Acetaminophen (Tylenol) 650 mg PO Q4H PRN PRN Reason: Pain (Mild 1-3)/fever Hydrocodone Bitart/Acetaminophen ([place] 325-5 Mg) 1 tab PO Q3H PRN PRN Reason: Pain (mild 1-3) Last Admin: 08/15/18 14:58 Dose: 1 tab Albuterol (Proventil Neb Soln) 2.5 mg NEB Q4H PRN PRN Reason: Shortness Of Breath/wheezing Bandage/Support Products ( [employer]) 1 applic NASBOTH BID [facility] Stop: 08/21/18 21:01 Last Admin: 08/17/18 20:53 Dose: 1 applic Admin: 08/17/18 08:04 Dose: 1 applic Admin: 08/16/18 20:00 Dose: 1 applic Admin: 08/16/18 08:42 Dose: 1 applic Admin: 08/15/18 21:15 Dose: 1 applic Admin: 08/15/18 11:31 Dose: 1 applic Admin: 08/15/18 11:30 Dose: 1 applic Enoxaparin Sodium (Lovenox) 30 mg SUBCUT DAILY [facility] Last Admin: 08/17/18 08:07 Dose: 30 mg Admin: 08/16/18 08:41 Dose: 30 mg Hydromorphone HCl (Dilaudid) 1 mg IVPUSH Q2H PRN PRN Reason: Pain Last Admin: 08/16/18 08:51 Dose: 1 mg Admin: 08/15/18 22:29 Dose: 1 mg Admin: 08/15/18 17:37 Dose: 1 mg Admin: 08/15/18 09:42 Dose: 1 mg Admin: 08/15/18 03:32 Dose: 1 mg Admin: 08/14/18 21:46 Dose: 1 mg Admin: 08/14/18 16:05 Dose: 1 mg Admin: 08/14/18 12:31 Dose: 1 mg Admin: 08/14/18 07:17 Dose: 1 mg Melatonin (Melatonin) 6 mg PO BEDTIME PRN PRN Reason: Insomnia Ondansetron HCl (Zofran) 4 mg IV Q4H PRN PRN Reason: Nausea/Vomiting Oxycodone/Acetaminophen (Percocet 325-5 Mg) 1 - 2 tab PO Q4H PRN PRN Reason: Pain Last Admin: 08/18/18 07:09 Dose: 2 tab Admin: 08/18/18 02:55 Dose: 2 tab Admin: 08/17/18 20:56 Dose: 2 tab Admin: 08/17/18 16:25 Dose: 2 tab Admin: 08/17/18 12:00 Dose: 2 tab Admin: 08/17/18 07:51 Dose: 2 tab Admin: 08/17/18 03:30 Dose: 2 tab Admin: 08/16/18 18:37 Dose: 2 tab Admin: 08/16/18 10:52 Dose: 2 tab Admin: 08/16/18 05:39 Dose: 2 tab Admin: 08/16/18 01:11 Dose: 2 tab Admin: 08/15/18 21:14 Dose: 2 tab Admin: 08/15/18 16:19 Dose: 2 tab Polyethylene Glycol (Miralax) 17 gm PO DAILY PRN PRN Reason: Constipation Last Admin: 08/17/18 07:49 Dose: 17 gm Admin: 08/16/18 21:00 Dose: 17 gm Senna/Docusate Sodium (Senna Plus) 1 tab PO BID [facility] Last Admin: 08/17/18 20:56 Dose: 1 tab Admin: 08/17/18 08:07 Dose: 1 tab Admin: 08/16/18 20:00 Dose: 1 tab Admin: 08/16/18 08:41 Dose: 1 tab Admin: 08/15/18 21:16 Dose: 1 tab Admin: 08/15/18 10:50 Dose: Admin: 08/14/18 21:45 Dose: 1 tab Admin: 08/14/18 10:07 Dose: 1 tab Sodium Chloride (Saline Flush) 10 ml FLUSH ASDIRECTED PRN PRN Reason: Keep Vein Open Venlafaxine HCl (Effexor Xr) 300 mg PO DAILY [facility] Last Admin: 08/17/18 08:07 Dose: 300 mg Admin: 08/16/18 08:42 Dose: 300 mg Admin: 08/15/18 08:39 Dose: 300 mg Admin: 08/14/18 10:06 Dose: 300 mg - Assessment Assessment (Free Text/Narrative):: Very slight redness right hip with likely small to moderate hematoma. Had slight fever night before last, nothing overnight. - Plan Plan (Free Text/Narrative):: Ok to go to SNF, follow up next week. Recommend sending out on antibiotic, Keflex for 7 days, and will reassess next week. Return for recurrent fevers, chills, drainage, etc.
[2018-08-18] MEDS: Venlafaxine 75 MG Cap.ER PO SCH (09:26)
[2018-08-18] MEDS: Enoxaparin 30 MG/0.3 ML Syringe SUBCUT SCH (09:26)
[2018-08-18] MEDS: Nozin Nasal Sanitizer NASBOTH SCH (09:26)
[2018-08-18] MEDS ORDERED: Cephalexin 250 MG Cap PO SCH (10:00)
--- NOTE | 2018-08-18 11:57 | PCM.DCSUM1 ---
Discharge Summary - Hospital Course Free Text/Narrative:: 67 year with fall from step stool resulting in displaced right femoral neck fracture. Admitted over the weekend and underwent Hemiarthroplasty for right hip on Tuesday 08/15. Diagnosis: Stroke: No Modified Cocke Scale: No Symptoms at All Modified Radha Scale Score: 0 - Discharge Data Discharge Date: 08/18/18 Discharge Disposition: DC/Tfer to SNF 03 Condition: Fair - Discharge Diagnosis/Problem(s) (1) Fracture of neck of femur, hip SNOMED Code(s): 4550460 ICD Code: S72.009A - FRACTURE OF UNSP PART OF NECK OF UNSP FEMUR, INIT Status: Acute Current Visit: Yes (2) History of hemiarthroplasty of hip SNOMED Code(s): 362595772 ICD Code: Z96.649 - PRESENCE OF UNSPECIFIED ARTIFICIAL HIP JOINT Status: Acute Current Visit: Yes Problem Details: right hip - Patient Summary/Data Operative Procedure(s) Performed: Hemiarthroplasty right hip Complications: none Consults: Consultations 08/14/18 01:28 Consult to Physician [CONS] Routine Consulting Provider: Lukas Proctor Call Completed to Consulting Physician: Yes Reason for Consult: Right hip fracture 08/15/18 13:24 PT Evaluation and Treatment [CONS] Routine Please Evaluate and Treat. PT Reason for Consult: Ambulation Pending Discharge: Yes Discharge Disposition: Jail Facility Special Instructions: posterior hip precautions, WBAT This query below is only for informational purposes and is not editable. Admission Diagnosis/Problem: Hip fracture requiring operative repair 08/15/18 13:31 Consult to Occupational Therapy [OT Evaluation and Treatment] [CONS] Routine Please Evaluate and Treat. OT Reason for Consult: ADL's Pending Discharge: Yes Discharge Disposition: Jail Facility This query below is only for informational purposes and is not editable. Admission Diagnosis/Problem: Hip fracture requiring operative repair Hospital Course: Admitted thru ED after a fall. Underwent hemiarthroplasty right hip 08/15. Tolerated surgery well, no complications. Has been participating with PT/OT and making progress. Had slight fever the night of POD#2, resolved the next day. Not quite ready to be at home independently. Arrangements made to transfer to SNF. Anticipate short stay. - Patient Instructions Diet: Usual Diet as Tolerated Activity: Apply Ice, As Tolerated, Full Weight Bearing Activity, Other: Posterior hip precautions Driving: Do Not Drive Showering/Bathing: May Shower Wound/Incision Care: Change Dressing Daily Notify Provider of: Fever, Increased Pain, Swelling and Redness, Drainage - Discharge Plan *PRESCRIPTION DRUG MONITORING PROGRAM REVIEWED*: No *COPY OF PRESCRIPTION DRUG MONITORING REPORT IN PATIENT RADHA: No Home Medications: Home Meds Calcium Carbonate [Calcium] 600 mg PO DAILY 09/02/15 [History] Multivitamin [Multivitamins] 1 tab PO DAILY 09/02/15 [History] Venlafaxine [Effexor XR] 300 mg PO DAILY 09/02/15 [History] Cholecalciferol (Vitamin D3) [Vitamin D] 5,000 unit PO DAILY 08/14/18 [History] Oxygen Therapy Mode: Room Air Patient Handouts: Total Hip Replacement, [id number] Referrals: Lukas Proctor MD [Physician] - 08/30/18 1:15 pm (Please arrive 15 minutes early to register for appointment. Check in at ER desk for appointment.) - Discharge Summary/Plan Comment DC Time >30 min.: Yes - General Info Functional Status: Reports: Pain Controlled, Tolerating Diet, Ambulating, Urinating - Review of Systems General: Reports: No Symptoms HEENT: Reports: No Symptoms Pulmonary: Reports: No Symptoms Cardiovascular: Reports: No Symptoms Gastrointestinal: Reports: No Symptoms Genitourinary: Reports: No Symptoms Musculoskeletal: Reports: Leg Pain Skin: Reports: No Symptoms Neurological: Reports: No Symptoms Psychiatric: Reports: No Symptoms - Patient Data Vitals - Most Recent: Last Vital Signs Temp 36.7 C 08/18/18 07:14 Pulse 74 08/18/18 07:14 Resp 18 08/18/18 07:14 BP 117/55 L 08/18/18 07:14 Pulse Ox 100 08/18/18 07:14 Weight - Most Recent: 85.774 kg I&O - Last 24 hours: Intake & Output 08/17/18 08/18/18 08/18/18 22:59 06:59 14:59 Intake Total 1000 460 Output Total 900 500 Balance 100 -40 Med Orders - Current: Current Medications Acetaminophen (Tylenol) 650 mg PO Q4H PRN PRN Reason: Pain (Mild 1-3)/fever Hydrocodone Bitart/Acetaminophen ([place] 325-5 Mg) 1 tab PO Q3H PRN PRN Reason: Pain (mild 1-3) Last Admin: 08/15/18 14:58 Dose: 1 tab Albuterol (Proventil Neb Soln) 2.5 mg NEB Q4H PRN PRN Reason: Shortness Of Breath/wheezing Bandage/Support Products ( Nasal [employer]) 1 applic NASBOTH BID [facility] Stop: 08/21/18 21:01 Last Admin: 08/18/18 09:26 Dose: 1 applic Cephalexin (Keflex) 250 mg PO Q6HR [facility] Stop: 08/25/18 10:01 Last Admin: 08/18/18 09:31 Dose: 250 mg Enoxaparin Sodium (Lovenox) 30 mg SUBCUT DAILY [facility] Last Admin: 08/18/18 09:26 Dose: 30 mg Hydromorphone HCl (Dilaudid) 1 mg IVPUSH Q2H PRN PRN Reason: Pain Last Admin: 08/16/18 08:51 Dose: 1 mg Melatonin (Melatonin) 6 mg PO BEDTIME PRN PRN Reason: Insomnia Ondansetron HCl (Zofran) 4 mg IV Q4H PRN PRN Reason: Nausea/Vomiting Oxycodone/Acetaminophen (Percocet 325-5 Mg) 1 - 2 tab PO Q4H PRN PRN Reason: Pain Last Admin: 08/18/18 11:20 Dose: 1 tab Polyethylene Glycol (Miralax) 17 gm PO DAILY PRN PRN Reason: Constipation Last Admin: 08/17/18 07:49 Dose: 17 gm Senna/Docusate Sodium (Senna Plus) 1 tab PO BID [facility] Last Admin: 08/18/18 09:31 Dose: 1 tab Sodium Chloride (Saline Flush) 10 ml FLUSH ASDIRECTED PRN PRN Reason: Keep Vein Open Venlafaxine HCl (Effexor Xr) 300 mg PO DAILY [facility] Last Admin: 08/18/18 09:26 Dose: 300 mg Discontinued Medications Fentanyl (Sublimaze) Confirm Administered Dose 100 mcg .ROUTE .STK-MED ONE Stop: 08/15/18 08:00 Heparin Sodium (Porcine) (Heparin Sodium) 5,000 units SUBCUT Q8H [facility] Stop: 08/14/18 17:29 Last Admin: 08/14/18 18:20 Dose: 5,000 units Hydromorphone HCl (Dilaudid) 1 mg IVPUSH ONETIME ONE Stop: 08/13/18 21:29 Last Admin: 08/13/18 21:38 Dose: 1 mg Hydromorphone HCl (Dilaudid) 1 mg IVPUSH ONETIME ONE Stop: 08/13/18 22:24 Last Admin: 08/13/18 22:38 Dose: 1 mg Hydromorphone HCl (Dilaudid) 1 mg IVPUSH ONETIME ONE Stop: 08/14/18 01:03 Last Admin: 08/14/18 01:44 Dose: 1 mg Lactated Ringer's (Ringers, Lactated) 1,000 mls @ 125 mls/hr IV ASDIRECTED [facility] Last Admin: 08/14/18 02:10 Dose: 125 mls/hr Cefazolin Sodium/Dextrose 2 gm (/ Premix) 50 mls @ 100 mls/hr IV ONETIME ONE Stop: 08/15/18 12:44 Last Admin: 08/15/18 13:47 Dose: Not Given Lactated Ringer's (Ringers, Lactated) 1,000 mls @ 125 mls/hr IV ASDIRECTED [facility] Last Admin: 08/16/18 14:10 Dose: 125 mls/hr Cefazolin Sodium/Dextrose 1 gm (/ Premix) 50 mls @ 100 mls/hr IV Q8H [facility] Stop: 08/16/18 10:29 Last Admin: 08/16/18 09:48 Dose: 100 mls/hr Midazolam HCl (Versed 1 Mg/Ml) Confirm Administered Dose 2 mg .ROUTE .STK-MED ONE Stop: 08/15/18 08:00 Povidone Iodine (Betadine 10% Soln) Confirm Administered Dose 1 ml .ROUTE .STK- MED ONE Stop: 08/15/18 10:18 Last Admin: 08/15/18 12:35 Dose: 30 ml Propofol (Diprivan 20 Ml) Confirm Administered Dose 200 mg .ROUTE .STK-MED ONE Stop: 08/15/18 08:00 Propofol (Diprivan 20 Ml) Confirm Administered Dose 200 mg .ROUTE .STK-MED ONE Stop: 08/15/18 12:31 - Exam General: Reports: Alert, Oriented HEENT: Reports: Pupils Equal, Pupils Reactive, EOMI, Mucous Membr. Moist/[place] Neck: Reports: Supple Lungs: Reports: Clear to Auscultation, Normal Respiratory Effort Cardiovascular: Reports: Regular Rate, Regular Rhythm GI/Abdominal Exam: Normal Bowel Sounds, Soft, Non-Tender, No Organomegaly, No Distention, No Abnormal Bruit, No Mass, Pelvis Stable (Female) Exam: Deferred Rectal (Female) Exam: Deferred Back Exam: Reports: Normal Inspection, Full Range of Motion Skin: Reports: Warm, Dry Wound/Incisions: Reports: Healing Well, No Drainage, Other (very slight redness/ inflammation) Neurological: Reports: No New Focal Deficit Psy/Mental Status: Reports: Alert, Normal Affect, Normal Mood
== END 2018-08-18 13:10 | DRG 470 ==
LOC: JP.ED 20:53 → JP.MS 08-14 01:02
PROVIDERS: ADMIT Hospitalist; ATTEND Hospitalist
PROC: 0SRR0JA Replacement of Right Hip Joint, Femoral Surface with Synthetic Substitute, Uncemented, Open Approach (ICD-10-PCS; principal; 2018-08-15)
DX: S72.001A Fracture of unspecified part of neck of right femur, initial encounter for closed fracture (principal); W10.8XXA Fall (on) (from) other stairs and steps, initial encounter; Y92.009 Unspecified place in unspecified non-institutional (private) residence as the place of occurrence of the external cause; F32.9 Major depressive disorder, single episode, unspecified; M25.551 Pain in right hip; F41.9 Anxiety disorder, unspecified; Z87.891 Personal history of nicotine dependence
CPT/HCPCS: 73502; 96374; 96376; 99284; J1170 ×2; 36415; 72170; 72170-26; 80053; 85025; 85027; 94762; 97110-GP; 97116-GP; 97162-GP; 97165-GO; 97530-GP; 97535-GO; 97535-GP; A9270-GY; C1776; J0690; J1644; J1650; J2250; J2704; J3010; J7120

== ENCOUNTER 2018-08-28 11:21 | Emergency (ER) | payer MEDICARE, OTHER ==
[2018-08-28 11:56] VITALS: BP 130/69
[2018-08-28] MEDS ORDERED: Phenazopyridine 95 MG Tab PO ONE (11:57)
--- NOTE | 2018-08-28 12:02 | EDM.PDOC ---
ED HPI GENERAL MEDICAL PROBLEM - General Chief Complaint: Genitourinary Problem Stated Complaint: UTI Time Seen by Provider: 08/28/18 11:45 Source of Information: Reports: Patient History Limitations: Reports: No Limitations - History of Present Illness INITIAL COMMENTS - FREE TEXT/NARRATIVE: Rabia is a 67 year old female, presents today with urinary urgency burning and hematuria for the last 2 days. Patient has had issues with incontinence since her right hip surgery on the 15th of this month, this is really unusual for her and has gotten progressive since other urinary symptoms have started. She denies any fever, chills, flank pain, no nausea/vomiting. Has been staying well hydrated, nothing makes symptoms better or worse. Patient did finish a course of Keflex about 3 days ago for ? early cellulitis to right hip incision which has now been healing very well. Patient denies any other complaints today. Onset: Gradual Duration: Day(s): (2) - Related Data Allergies Allergy/AdvReac Type Severity Reaction Status Date / Time No Known Allergies Allergy Verified 08/28/18 11:36 Home Meds: Home Meds Calcium Carbonate [Calcium] 600 mg PO DAILY 09/02/15 [History] Multivitamin [Multivitamins] 1 tab PO DAILY 09/02/15 [History] Venlafaxine [Effexor XR] 300 mg PO DAILY 09/02/15 [History] Cholecalciferol (Vitamin D3) [Vitamin D] 5,000 unit PO DAILY 08/14/18 [History] Past Medical History HEENT History: Reports: None Genitourinary History: Reports: None [employer] WORK[employer] History: Reports: Musculoskeletal History: Reports: Fracture, Other (See Below) Other Musculoskeletal History: right wrist fracture. right foot fracture. right hip fracture Psychiatric History: Reports: Anxiety, Depression - Infectious Disease History Infectious Disease History: Reports: Chicken Pox, Measles, Mumps, Shingles - Past Surgical History Head Surgeries/Procedures: Reports: None HEENT Surgical History: Reports: Oral Surgery Female Surgical History: Reports: Section Musculoskeletal Surgical History: Reports: Other (See Below) Other Musculoskeletal Surgeries/Procedures:: right wrist repair Dermatological Surgical History: Reports: None Social & Family History - Tobacco Use Smoking Status *Q: Never Smoker Second Hand Smoke Exposure: No - Caffeine Use Caffeine Use: Reports: Coffee Caffeine Use Comment: 1-2 cups/daily - Alcohol Use Days Per Week of Alcohol Use: 7 Number of Drinks Per Day: 2 Total Drinks Per Week: 14 - Recreational Drug Use Recreational Drug Use: No ED ROS GENERAL - Review of Systems Review Of Systems: ROS reveals no pertinent complaints other than HPI. ED EXAM, RENAL/ - Physical Exam Exam: See Below Exam Limited By: No Limitations General Appearance: Alert, WD/WN, No Apparent Distress Throat/Mouth: Normal Oropharynx Head: Atraumatic, Normocephalic Neck: Normal Inspection, Supple Respiratory/Chest: No Respiratory Distress Cardiovascular: Regular Rate, Rhythm Back Exam: Normal Inspection. No: CVA Tenderness (R), CVA Tenderness (L) Extremities: Normal Inspection, Normal Range of Motion, Other (right hip incision looks fantastic, no drainage, redness or warmth) Neurological: Alert, Oriented, CN II-XII Intact Psychiatric: Normal Affect, Normal Mood Skin Exam: Warm, Dry, Intact Lymphatic: No Adenopathy Course - Vital Signs Last Recorded V/S: Last Vital Signs Temp 35.8 C 08/28/18 11:38 Pulse 74 08/28/18 11:38 Resp 13 08/28/18 11:38 BP 130/69 08/28/18 11:38 Pulse Ox 97 08/28/18 11:38 Rabia is a delightful 67 year old female who presents to the ED today with UTI symptoms for the last couple of days, please refer to HPI and focused exam. Patient arrives here hemodynamically stable and afebrile, exam is unremarkable. Patient well hydrated and non toxic appearing. Patient given a dose of Pyridium here. UA positive for UTI, positive nitrites, will start on Bactrim to cover for E. Coli pending culture. Pyridium for pain. Stay well hydrated. Return with any worsening symptoms. - Orders/Labs/Meds Orders: Active Orders 24 hr Category Date Time Status CULTURE URINE [RM] Stat Lab 08/28/18 12:06 Labs: Laboratory Tests 08/28/18 Range/Units 11:50 Urine Color [place] Urine Appearance Cloudy Urine pH 6.0 (4.5-8.0) Ur Specific [place] 1.015 (1.008-1.030) Urine Protein 30 H (NEGATIVE) mg/dL Urine Glucose (UA) Normal (NEGATIVE) mg/dL Urine Ketones Negative (NEGATIVE) mg/dL Urine Occult Blood Large (NEGATIVE) Urine Nitrite Positive H (NEGATIVE) Urine Bilirubin Moderate (NEGATIVE) Urine Urobilinogen 1 (NORMAL) mg/dL Ur Leukocyte Esterase Large (NEGATIVE) Urine RBC Packed H (0-5) Urine WBC Packed H (0-5) Ur Epithelial Cells Moderate Amorphous Sediment Few Urine Bacteria Many Urine Mucus Moderate Meds: Medications Discontinued Medications Generic Name Dose Route Start Last Admin Trade Name Cherise PRN Reason Stop Dose Admin Phenazopyridine HCl 190 mg 08/28/18 11:57 Urinary Pain Relief PO 08/28/18 11:58 ONETIME ONE Departure - Departure Time of Disposition: 12:30 Disposition: Home, Self-Care 01 Condition: Good Clinical Impression: UTI, Urinary tract infectious disease - Discharge Information Instructions: Urinary Tract Infection, Adult Referrals: PCP,None [Primary Care Provider] - Forms: ED Department Discharge Additional Instructions: Start Bactrim today, I would recommend eating a lot of yogurt or starting a good probiotic such as Culturelle while on the Bactrim to avoid GI upset/ diarrhea. Pyridium as prescribed for urinary burning/pain. Stay well hydrated. Return with any worsening symptoms such as fever/back pain. You are looking great, keep up the good work...good luck with the rest of your recovery and here's to no more washing windows! - My Orders Last 24 Hours: My Active Orders 08/28/18 12:06 CULTURE URINE [RM] Stat - Assessment/Plan Last 24 Hours: My Active Orders 08/28/18 12:06 CULTURE URINE [RM] Stat
== END 2018-08-28 12:30 | disposition home or self-care (01) ==
LOC: JP.ED 11:21
DX: N39.0 Urinary tract infection, site not specified (principal); F41.9 Anxiety disorder, unspecified; F32.9 Major depressive disorder, single episode, unspecified; Z79.899 Other long term (current) drug therapy; Z98.890 Other specified postprocedural states
CPT/HCPCS: 81001; 87086; 87088; 87186; 99283